=== PATIENT | female | born 1995 | race Caucasian/White ===

== ENCOUNTER 2016-07-23 10:37 | Outpatient (CLI) | payer MEDICAID ==
[~2016-07-23] VITALS: Ht 157.5 cm; Wt 81.8 kg
[~2016-07-23 10:37] MED LIST: PREN1TAB17 PO; PREN1TAB67 PO
[2016-07-23 11:01] VITALS: BP 110/53; PULSE 88
[2016-07-23 11:03] VITALS: Ht 157.5 cm; Wt 81.8 kg
[2016-07-23 11:51] LABS: ADD UMIC YES; URINE BILIRUBIN (Dip) NEGATIVE (NEGATIVE); URINE BLOOD (Dip) NEGATIVE (NEGATIVE); URINE COLOR LT. YELLOW (YELLOW); URINE GLUCOSE (Dip) NEGATIVE (NEGATIVE); URINE KETONES (Dip) NEGATIVE (NEGATIVE); URINE LEUKOCYTE ESTERASE (Dip) 3+ (NEGATIVE); URINE NITRITE (Dip) NEGATIVE (NEGATIVE); URINE TOTAL PROTEIN (Dip) NEGATIVE (NEGATIVE); URINE UROBILINOGEN (Dip) 0.2 E.U./dL (0.1-1.0)
[2016-07-23] MEDS ORDERED: LACTATED RINGER'S 1,000 ML IV ONE ×2 (12:00→14:00)
[2016-07-23] MEDS ORDERED: TERBUTALINE 1 MG/ML INJ SC ONE (12:00)
[2016-07-23] MEDS ORDERED: TERBUTALINE 1 ML ONE (12:02)
[2016-07-23 12:10] LABS: BACTERIA,URINE MODERATE; SQUAMOUS EPITHELIAL CELL,UR MODERATE; URINE RBCS 0-2 /HPF (0)
--- NOTE | 2016-07-23 14:43 | PN ---
Date/Time of Note Date/Time of Note DATE: 07/23/16 TIME: 14:39 OB Subjective Subjective Subjective Patient is a 2 para 1 at 36+5 weeks of gestation She presents with contractions OB Objective Objective Objective Cervical exam per nurse fingertip/50%/-1 [place] irregular heart rate category 1 HEENT: WNL Heart: Rhythm Normal Lungs: Clear Abdomen: WNL Extremities: Normal Cervical Dilatation: Fingertip Effacement: 50% Station: -1 Membranes: Intact Heart Rate: 140's Accelerations: Accelerations Present Decelerations: No Decelerations Varibility: Moderate Contractions on Admission: >10 Minutes Apart Intensity: Mild OB Assessment/Plan Reason for admission: labor Other Assessment: Rule out labor Other plan: IV fluid Terbutaline 1 dose UA positive for 3+ leukocyte esterase Prescription for Macrobid 100 mg p.o. twice daily for 7 days was given Patient to follow-up with Dr. Thakur in 2 days ROX BOURGEOIS MD Jul 23, 2016 14:43
--- NOTE | 2016-07-23 17:17 | TRIAGE ---
OB Triage Datetime Report Generated by CPN: 07/23/2016 17:17 Datetime: 07/23/2016 13:33 Stage of : OB Triage Maternal Assessment Level of Consciousness: Fully Conscious Headache: Denies Nausea/Vomiting: Denies RUQ Epigastric Pain: Denies Labor Evaluation Frequency: irrit Monitor Mode: External Duration (sec)2399: 5-30 Resting Tone [place]: Relaxed Heart Rate FHR Baseline Rate: 135 Monitor Mode: External US FHR Baseline Changes: No Baseline Change Variability: Moderate 6-25 bpm Accelerations: 15X15 Decelerations: None Category: Category I Pain Assessment Pain Scale: 4 Pain Presence: Constant Pain Type: Pressure Pain Location: Abdomen Pain Goal: 2 Datetime: 07/23/2016 12:47 Stage of : OB Triage Maternal Assessment Level of Consciousness: Fully Conscious Headache: Denies Nausea/Vomiting: Denies RUQ Epigastric Pain: Denies Labor Evaluation Frequency: irrit Monitor Mode: External Duration (sec)2399: 5 Resting Tone [place]: Relaxed Heart Rate FHR Baseline Rate: 140 Monitor Mode: External US FHR Baseline Changes: No Baseline Change Variability: Moderate 6-25 bpm Accelerations: 15X15 Decelerations: None Category: Category I Pain Assessment Pain Scale: 4 Pain Presence: Constant Pain Type: Pressure Pain Location: Abdomen Pain Goal: 2 Datetime: 07/23/2016 12:04 Stage of : OB Triage Maternal Assessment Level of Consciousness: Fully Conscious Headache: Denies Nausea/Vomiting: Denies RUQ Epigastric Pain: Denies Labor Evaluation Frequency: 0 Monitor Mode: External Heart Rate FHR Baseline Rate: 140 Monitor Mode: External US FHR Baseline Changes: No Baseline Change Variability: Moderate 6-25 bpm Accelerations: 15X15 Decelerations: None Category: Category I Pain Assessment Pain Scale: 8 Pain Presence: Constant Pain Type: Contraction; Pressure; Ache Pain Location: Abdomen Pain Goal: 4 Pain Relief Measures: TERB GIVEN Datetime: 07/23/2016 11:14 Vaginal Exam Dilatation (cms): 0.5 Effacement (%): 50 Station: -1 Exam By: LR RN Datetime: 07/23/2016 11:00 Stage of : OB Triage Assessment Type: Triage Maternal Assessment Level of Consciousness: Fully Conscious DTR's/Clonus: DTRs 2+; No Clonus Headache: Denies Blurred Vision: No Respiratory Effort: Unlabored; Regular Rhythm; Equal Expansion Breath Sounds, Left: Clear and Equal Breath Sounds, Right: Clear and Equal Nausea/Vomiting: Denies RUQ Epigastric Pain: Denies Lower Extremities Edema: None Upper Extremities Edema: None Facial Edema: None Fall Risk Assessment History of Falling: (0) No Secondary Diagnosis: (0) No Ambulatory Aid: (0) Bedrest/Nurse Assist IV Therapy: (0) No Gait: (0) Normal/Bedrest/Immobile Mental Status: (0) Oriented to Own Ability Fall Score: 0 Fall Risk Score Definition: No Risk: No action required Labor Evaluation Frequency: 0 Monitor Mode: External Heart Rate FHR Baseline Rate: 140 Monitor Mode: External US FHR Baseline Changes: No Baseline Change Variability: Moderate 6-25 bpm Accelerations: 15X15 Decelerations: None Category: Category I Datetime: 07/23/2016 10:43 EGA: 36.5 Datetime: 07/23/2016 10:38 Time of Arrival: 07/23/2016 10:37 Arrived By: Wheelchair Arrived From: Home Chief Complaint: UC'S SINCE MONDAY; SAW DR LOYD ON MONDAY Rupture of Membranes: Denies Vaginal Discharge: Denies Recent Sexual Intercouse: Denies Abdominal Trauma: Not Applicable Patient Complaints: Contractions Initial Plan: EFM/VE/NST/ R/O PTL/CALL DR LOYD FOR ORDERS UA SENT ([facility])
== END 2016-07-23 15:00 | disposition home or self-care (01) ==
LOC: OBT 10:37 → L-D 10:37 → OBT 15:00
PROVIDERS: ATTEND Obstetrics & Gynecology
DX: O62.8 Other abnormalities of forces of labor (principal)
CPT/HCPCS: 36415; 81001; 96360; 96361; 96372; J3105; J7120; Z7500; 81003; G0463

== ENCOUNTER 2016-08-10 21:10 | Outpatient (CLI) | payer MEDICAID ==
--- NOTE | 2016-08-10 22:16 | RADRPT ---
PROCEDURE: US OB biophysical profile. CLINICAL INDICATION: decreased movements, pelvic pain TECHNIQUE: Multiple sonographic images of the pelvis were obtained. The images were reviewed on a PACS workstation. COMPARISON: No prior studies are available for comparison. FINDINGS: There is a single viable intrauterine gestation. Cardiac activity is present with 134 beats per min [place]. There is a vertex presentation. The placenta is anterior. There is no evidence of placental abruption. There is a normal amount of amniotic fluid with an KIERSTEN = 11.7 cm. Biophysical profile: movement 2/2 tone 2/2. breathing 2/2 KIERSTEN 2/2 Total 11/08 RPTAT: AA . IMPRESSION: Normal biophysical profile. . .Merlin Cannon MD, Date Time Electronically viewed and signed by .Mrelin Cannon MD, MD on 08/10/2016 22:16 .S/
--- NOTE | 2016-08-10 22:41 | HP ---
Date/Time of Note Date/Time of Note DATE: 08/10/16 TIME: 22:36 OB - History Hx of Present Free Text/Dictation OB Triage- Laborist Pt is a 20yo at 39+2 presenting with c/o contractions since 1300, decreased FM x2 days and blood noted on toilet paper with wiping last night. Pt denies LOF. PROCEDURE: US OB biophysical profile. CLINICAL INDICATION: decreased movements, pelvic pain TECHNIQUE: Multiple sonographic images of the pelvis were obtained. The images were reviewed on a PACS workstation. COMPARISON: No prior studies are available for comparison. FINDINGS: There is a single viable intrauterine gestation. Cardiac activity is present with 134 beats per minute. There is a vertex presentation. The placenta is anterior. There is no evidence of placental abruption. There is a normal amount of amniotic fluid with an KIERSTEN = 11.7 cm. Biophysical profile: movement 2/2 tone 2/2. breathing 2/2 KIERSTEN 2/2 Total 11/08 RPTAT: AA . IMPRESSION: Normal biophysical profile. Estimated Due Date: August 15, 2016 : 2 Para: 1 Care: Good Care OB Admission Exam Vital Signs Vital Signs 98.3 105/55 83 Physical Exam Cervical Dilatation: 1cm Effacement: Other (40%) Station: -3 Membranes: Intact Heart Rate: 130's Accelerations: Accelerations Present Decelerations: No Decelerations Varibility: Moderate Contractions on Admission: < 5 Minutes Apart (q3-4 min) Intensity: Mild OB Assessment/Plan Other Assessment: Term contractions w/o evidence of labor Reassuring FWB Other plan: Reactive NST, 11/08 BPP. Pt appropriate for d/c home. FKC, Labor and ROM precautions reviewed Questions answered to patient's satisfaction Pt to f/up as scheduled with PATSY Leal MD August 10, 2016 22:41
--- NOTE | 2016-08-10 22:49 | TRIAGE ---
OB Triage Datetime Report Generated by CPN: 08/10/2016 22:48 Datetime: 08/10/2016 22:30 Stage of : OB Triage Datetime: 08/10/2016 21:30 Labor Evaluation Frequency: X2 Monitor Mode: External Duration (sec)2399: 70-80 Pattern: Normal: <= 5 Contractions in 10 Minutes Heart Rate FHR Baseline Rate: 140 Monitor Mode: External US FHR Baseline Changes: No Baseline Change Variability: Moderate 6-25 bpm Decelerations: Variable Category: Category II Comments: 15X15 X1 Datetime: 08/10/2016 21:26 Vaginal Exam Dilatation (cms): 1.0 Effacement (%): 40 Station: -3 Exam By: MICHAEL Vaginal Bleeding: None Cervix, Consistency: Moderate Cervix, Position: Posterior Presentation 'A': Cephalic Datetime: 08/10/2016 21:24 Pain Assessment Pain Scale: 7 Pain Presence: Intermittent Pain Type: Ache Pain Location: Right Hip Pain Goal: 3 Pain Assessment Comments: PT. APPEARS COMFORTABLE, NOT GRIMACING, MOANING OR CRYING. PT. ANSWERING QUESTIONS CALMLY AND IS STATIONARY IN BED Datetime: 08/10/2016 21:21 Assessment Type: Triage Maternal Assessment Level of Consciousness: Fully Conscious Headache: Denies Blurred Vision: No Respiratory Effort: Unlabored; Regular Rhythm; Equal Expansion Breath Sounds, Left: Clear and Equal Breath Sounds, Right: Clear and Equal Nausea/Vomiting: Denies RUQ Epigastric Pain: Denies Lower Extremities Edema: None Degree: None Upper Extremities Edema: None Facial Edema: None Fall Risk Assessment History of Falling: (0) No Secondary Diagnosis: (0) No Ambulatory Aid: (0) Bedrest/Nurse Assist Gait: (0) Normal/Bedrest/Immobile Mental Status: (0) Oriented to Own Ability Datetime: 08/10/2016 21:15 Time of Arrival: 08/10/2016 21:08 EGA: 39.2 Arrived By: Wheelchair Arrived From: Home Chief Complaint: UC'S, DFM, SPOTTING Movement: Decreased Contractions: Irregular Time Contractions Began: 08/10/2016 13:00 Contractions: Q20MIN Rupture of Membranes: Denies Vaginal Bleeding: Scant Vaginal Discharge: Present Recent Sexual Intercouse: Denies Abdominal Trauma: Not Applicable Patient Complaints: Contractions Time Provider Notified: 08/10/2016 21:49 Provider Notified: JAMIE Initial Plan: EFM, CALL OB Datetime: 07/23/2016 14:30 Stage of : OB Triage Maternal Assessment Level of Consciousness: Fully Conscious Headache: Denies Nausea/Vomiting: Denies RUQ Epigastric Pain: Denies Labor Evaluation Frequency: OCC Monitor Mode: External Duration (sec)2399: 5-30 Resting Tone [place]: Relaxed Heart Rate FHR Baseline Rate: 135 Monitor Mode: External US FHR Baseline Changes: No Baseline Change Variability: Moderate 6-25 bpm Accelerations: 15X15 Decelerations: None Category: Category I Pain Assessment Pain Scale: 2 Pain Presence: Constant Pain Type: Pressure Pain Location: Abdomen Pain Goal: 2 Datetime: 07/23/2016 11:00 Fall Score: 0 Fall Risk Score Definition: No Risk: No action required Datetime: 07/23/2016 10:43 EGA: 36.5
== END 2016-08-10 22:30 | disposition home or self-care (01) ==
LOC: OBT 21:10 → L-D 21:10 → OBT 22:30
PROVIDERS: ATTEND Obstetrics & Gynecology
DX: O62.9 Abnormality of forces of labor, unspecified (principal); O36.8130 Decreased fetal movements, third trimester, not applicable or unspecified; Z3A.39 39 weeks gestation of pregnancy
CPT/HCPCS: 76818

== ENCOUNTER 2016-08-14 11:52 | Inpatient (IN) | payer MEDICAID ==
[~2016-08-14] VITALS: Ht 157.5 cm; Wt 83.0 kg
[2016-08-14 12:07] VITALS: Ht 157.5 cm; Wt 83.0 kg
[2016-08-14 12:08] VITALS: BP 101/58; PULSE 85; RESP 20
--- NOTE | 2016-08-14 14:32 | HP ---
Date/Time of Note Date/Time of Note DATE: 08/14/16 TIME: 14:31 OB - History Hx of Present Free Text/Dictation 39+6 wks GA Suspected SROM : 1 Para: 0 Care: Good Care Ultrasounds: Normal mid trimester US Obstetrical Complications: None Medical Complications: None Past Family/Social History * Past Medical, Surgical, Family and Obstetric Histories reviewed from chart. OB Admission Exam Vital Signs Vital Signs Vital Signs Date Time Temp Pulse Resp B/P Pulse Ox O2 Delivery O2 Flow Rate FiO2 08/14/16 12:08 98.1 85 20 101/58 Room Air Physical Exam Abdomen: WNL Extremities: Normal Cervical Dilatation: 3cm Effacement: 75% Station: -1 Membranes: Ruptured Heart Rate: 140's Accelerations: Accelerations Present Decelerations: No Decelerations Varibility: Moderate Contractions on Admission: 6-10 Minutes Apart OB Assessment/Plan Reason for admission: observation Induction Method: per Pitocin Protocol SEN CUELLAR M.D. August 14, 2016 14:32
[2016-08-14] MEDS ORDERED: LACTATED RINGER'S 1,000 ML IV PRN (14:35)
[2016-08-14] MEDS ORDERED: CARBOPROST 250 MCG INJ IM PRN (15:00)
[2016-08-14] MEDS ORDERED: MISOPROSTOL 200 MCG TAB PR PRN (15:00)
[2016-08-14] MEDS ORDERED: OXYTOCIN 30 UNITS/LR 500 ML IV SCH ×3 (15:00→15:30)
[2016-08-14] MEDS ORDERED: LIDOCAINE 1% (MPF) 30 ML INJ INJ PRN (15:00)
[2016-08-14] MEDS ORDERED: BUTORPHANOL 2 MG INJ IV PRN (15:00)
[2016-08-14] MEDS ORDERED: OXYTOCIN 30 UNITS/LR 500 ML IV PRN (15:00)
[2016-08-14] MEDS ORDERED: METHYLERGONOVINE 0.2 MG INJ IM PRN (15:00)
[2016-08-14] MEDS ORDERED: AMPICILLIN 2 GM/NS (PMX) 100 ML IV ONE (15:00)
[2016-08-14] MEDS ORDERED: CEFAZOLIN 2 GM/50 ML (PMX) 50 ML IV ONE (15:00)
[2016-08-14] MEDS ORDERED: IBUPROFEN 600 MG TAB PO PRN (15:00)
[2016-08-14 15:08] LABS: ADD SCAN DIFF NO
[2016-08-14] MEDS: LACTATED RINGER'S 1,000 ML IV SCH ×2 (15:09→21:58)
[2016-08-14 15:10] LABS: BASOPHILS % 0.3 % (0.0-2.0); EOSINOPHILS % 0.3 % (0.0-7.0); HEMATOCRIT 33.7 % (37.0-47.0); HEMOGLOBIN 11.3 g/dl (12.0-16.0); LYMPHOCYTES # 1.5 10^3/ul (0.8-2.9); LYMPHOCYTES % 19.7 % (15.0-51.0); MEAN CORPUSCULAR HEMOGLOBIN 30.6 pg (29.0-33.0); MEAN CORPUSCULAR HGB CONC 33.5 g/dl (32.0-37.0); MEAN CORPUSCULAR VOLUME 91.3 fl (82.0-101.0); MEAN PLATELET VOLUME 11.8 fl (7.4-10.4); MONOCYTE # 0.4 10^3/ul (0.3-0.9); MONOCYTES % 5.6 % (0.0-11.0); NEUTROPHIL # 5.8 10^3/ul (1.6-7.5); NEUTROPHILS % 73.6 % (39.0-77.0); PLATELET COUNT 197 10^3/UL (140-415); RED BLOOD COUNT 3.69 10^6/ul (4.20-5.40); RED CELL DISTRIBUTION WIDTH 13.1 % (11.5-14.5); WHITE BLOOD COUNT 7.8 10^3/ul (4.8-10.8)
[2016-08-14 15:26] LABS: INR 0.91; PROTIME 12.3 Sec (12.2-14.2)
--- NOTE | 2016-08-14 16:01 | RADRPT ---
PROCEDURE: US OB. CLINICAL INDICATION: Size and dates , labor pain TECHNIQUE: Multiple sonographic images of the pelvis and gravid uterus were obtained. The images were reviewed on a PACS workstation. COMPARISON: 08/10/2016 FINDINGS: There is a single viable intrauterine gestation. Cardiac activity is present with 135 beats per min [place]. There is a vertex presentation. The placenta is anterior. There is no evidence for an abruption or placenta previa. There is a decreased amount of amniotic fluid with an KIERSTEN = 3.1 cm. Measurements were made in order to determine age. The results are as follows: BPD =9.3 cm HC =33.3 cm AC =37.2 cm FL =7.8 cm Estimated gestational age of approximately 39 weeks and 1 day based on ultrasound measurements. Clinical age: 39 weeks and 6 days. The estimated date of delivery is 08/20/2016, based on ultrasound measurements. The EFW = 3952 g, 78%, based on LMP age. RPTAT: AA IMPRESSION: Single viable intrauterine gestation of approximately 39 weeks and 1 day based on ultrasound measur ements. Oligohydramnios. .Merlin Cannon MD, Date Time Electronically viewed and signed by .Merlin Cannon MD, on 08/14/2016 16:01 .S/
--- NOTE | 2016-08-14 16:02 | RADRPT ---
PROCEDURE: US OB biophysical profile. CLINICAL INDICATION: decreased movements TECHNIQUE: Multiple sonographic images of the pelvis were obtained. The images were reviewed on a PACS workstation. COMPARISON: 08/10/2016 FINDINGS: There is a single viable intrauterine gestation. Cardiac activity is present with 126 beats per min [place]. There is a vertex presentation. The placenta is anterior. There is no evidence for an abruption or placenta previa. There is a decreased amount of amniotic fluid with an KIERSTEN = 3.1 cm. Biophysical profile: movement 2/2 tone 2/2. breathing 2/2 KIERSTEN 0/2 Total 09/08 RPTAT: AA . IMPRESSION: Decreased biophysical profile. Oligohydramnios. . .Merlin Cannon MD, Date Time Electronically viewed and signed by .Merlin Cannon MD, MD on 08/14/2016 16:01 .S/
[2016-08-14] MEDS: AMPICILLIN 1 GM/NS (PMX) 50 ML IV SCH (21:53)
[2016-08-15] MEDS: AMPICILLIN 1 GM/NS (PMX) 50 ML IV SCH ×3 (00:42→09:31)
[2016-08-15] MEDS: LACTATED RINGER'S 1,000 ML IV SCH (05:39)
[2016-08-15] MEDS ORDERED: ONDANSETRON 4 MG INJ IV PRN (08:00)
[2016-08-15] MEDS ORDERED: NALOXONE (0.4 MG/ML) INJ IV PRN (14:00)
[2016-08-15] MEDS ORDERED: FENTAnyl 2MCG/ML-ROPIV 0.2% 100 ML BAG EPI SCH (14:00)
--- NOTE | 2016-08-15 16:15 | LDN ---
Date/Time of Note Date/Time of Note DATE: 08/15/16 TIME: 16:13 Delivery Summary of a viable over intact perineum Weeks of Gestation 40 Placenta Delivered: Spontaneously, Intact & Complete Meconium: none Episiotomy: No Anesthesia type: Epidural Estimated blood loss: 300 Sponge & Needle done & correct: Yes All needle counts correct: Yes Any foreign bodies felt in the: No Problems: Delivery Information Sex Infant Sex: male Apgars 1 Minute: 9 5 Minute: 9 Suctioning Nose & mouth suctioned at kamini: Yes Delee suction performed: No Umbilical Cord Umbilical cord with: 3 Vessels Cord presentations: nuchal cord Nuchal cord present X: 1 Cord Blood was obtained: Yes Mother & Baby Disposition Disposition Mom & Baby to Maternity; Good: Yes (mother and baby were recovered in good condition ) Mom transferred to: Other (maternity) Baby to NICU: No LINDA RAI MD August 15, 2016 16:15
[2016-08-15] MEDS ORDERED: MINERAL OIL LIGHT 10 ML VIAL TOP ONE (16:30)
[2016-08-15 19:00] VITALS: BP 111/65; PULSE 64; RESP 16
[2016-08-15] MEDS ORDERED: METHYLERGONOVINE 0.2 MG INJ IM PRN (19:00)
[2016-08-15] MEDS ORDERED: CARBOPROST 250 MCG INJ IM PRN (19:00)
[2016-08-15] MEDS: CEPHALEXIN 500 MG CAP PO SCH ×2 (19:00→23:37)
[2016-08-15] MEDS ORDERED: MISOPROSTOL 200 MCG TAB PR PRN (19:00)
[2016-08-15] MEDS ORDERED: WITCH HAZEL/GLYCERIN PAD PR PRN (19:00)
[2016-08-15] MEDS ORDERED: ZOLPIDEM 5 MG TAB PO PRN (19:00)
[2016-08-15] MEDS ORDERED: LANOLIN 7 GM TUBE TOP PRN (19:00)
[2016-08-15] MEDS ORDERED: ACETAMINOPHEN/CODEINE #3 TAB PO PRN ×2 (19:00)
[2016-08-15] MEDS ORDERED: DIBUCAINE 1% 30 GM OINT PR PRN (19:00)
[2016-08-15] MEDS ORDERED: OXYTOCIN 30 UNITS/LR 500 ML IV PRN (19:00)
[2016-08-15] MEDS: IBUPROFEN 600 MG TAB PO SCH ×2 (19:00→23:37)
[2016-08-15] MEDS ORDERED: BENZOCAINE 20% 56 ML SPRAY TOP PRN (19:00)
[2016-08-15 20:20] VITALS: BP 109/68; RESP 18
[2016-08-15] MEDS: LACTATED RINGER'S 1,000 ML IV* SCH (20:44)
[2016-08-15] MEDS: SENNA/DOCUSATE NA (8.6MG/50MG) TAB PO SCH (21:08)
[2016-08-15] MEDS: MAGNESIUM HYDROXIDE 30ML CUP PO SCH (21:09)
[2016-08-15 23:40] VITALS: BP 99/59; PULSE 78; RESP 18
[2016-08-16 04:00] VITALS: BP 99/62; PULSE 62; RESP 18
[2016-08-16] MEDS: CEPHALEXIN 500 MG CAP PO SCH ×3 (06:24→18:12)
[2016-08-16] MEDS: IBUPROFEN 600 MG TAB PO SCH ×3 (06:24→18:13)
[2016-08-16] MEDS: LACTATED RINGER'S 1,000 ML IV* SCH (06:42)
[2016-08-16 08:10] VITALS: BP 94/54; PULSE 67; RESP 16
[2016-08-16 08:18] LABS: ADD SCAN DIFF NO
[2016-08-16 08:49] LABS: BASOPHILS % 0.1 % (0.0-2.0); EOSINOPHILS % 0.5 % (0.0-7.0); HEMOGLOBIN 9.1 g/dl (12.0-16.0); LYMPHOCYTES # 1.4 10^3/ul (0.8-2.9); LYMPHOCYTES % 16.3 % (15.0-51.0); MEAN CORPUSCULAR HEMOGLOBIN 30.7 pg (29.0-33.0); MEAN CORPUSCULAR HGB CONC 33.7 g/dl (32.0-37.0); MEAN CORPUSCULAR VOLUME 91.2 fl (82.0-101.0); MEAN PLATELET VOLUME 11.6 fl (7.4-10.4); MONOCYTE # 0.6 10^3/ul (0.3-0.9); MONOCYTES % 6.4 % (0.0-11.0); NEUTROPHIL # 6.6 10^3/ul (1.6-7.5); NEUTROPHILS % 76.2 % (39.0-77.0); PLATELET COUNT 157 10^3/UL (140-415); RED BLOOD COUNT 2.96 10^6/ul (4.20-5.40); RED CELL DISTRIBUTION WIDTH 13.3 % (11.5-14.5); WHITE BLOOD COUNT 8.6 10^3/ul (4.8-10.8)
[2016-08-16] MEDS: MAGNESIUM HYDROXIDE 30ML CUP PO SCH ×2 (09:00→21:00)
[2016-08-16] MEDS: SENNA/DOCUSATE NA (8.6MG/50MG) TAB PO SCH ×2 (09:46→21:00)
[2016-08-16 12:50] VITALS: BP 92/49; PULSE 55; RESP 16
[2016-08-16 16:10] VITALS: BP 94/48; PULSE 57; RESP 16
--- NOTE | 2016-08-16 18:02 | DS ---
Date/Time of Note Date/Time of Note home next day DATE: 08/16/16 TIME: 18:01 Obstetrical Discharge Record Final Diagnosis Final Diagnosis: Term delivered Other Final Diagnosis S/P vaginal delivery Vaginal Delivery Obstetrical Delivery: Spontaneous Complications Augmentation: Yes Induction: Yes Condition on Discharge Physical Assessment Last Vitals: see nurses notes Voiding: Yes Bowel Movement: Yes Breast: Soft, non-tender, Filling Fundus: Firm Abdomen and Incision: soft BS + Episiotomy: NA Calf Tenderness: No Patient Condition: Good LINDA RAI MD August 16, 2016 18:02
--- NOTE | 2016-08-16 18:04 | PD.PPDC ---
COMPUTER AIDED DESIGN DRAFTER Discharge Instruction Provider Information Physician Information 20 y/o female had vaginal delivery Diagnosis Final Diagnosis: S/P vaginal delivery Condition Patient Condition: Good Diet Diet: Resume Regular Diet Activity/Restrictions Activity: Normal Activity May Shower Restrictions: Nothing in the Vagina Return to Work or School: Oct 31, 2016 Follow-up Follow-up with Physician: 4, Week/Weeks (in clinic ) Return to clinic for OB Instructions: Breast Tenderness Depression LINDA RAI MD August 16, 2016 18:04
[2016-08-16] MEDS ORDERED: IBUP-1542 PO (18:05)
[2016-08-16 20:00] VITALS: BP 111/51; PULSE 60; RESP 20
[2016-08-17] MEDS: CEPHALEXIN 500 MG CAP PO SCH ×3 (00:05→11:50)
[2016-08-17] MEDS: IBUPROFEN 600 MG TAB PO SCH ×3 (00:05→11:50)
[2016-08-17 04:00] VITALS: BP 101/52; PULSE 50; RESP 18; RESP 20
[2016-08-17 08:00] VITALS: BP 94/51; PULSE 58; RESP 18
[2016-08-17] MEDS: SENNA/DOCUSATE NA (8.6MG/50MG) TAB PO SCH (09:00)
[2016-08-17] MEDS ORDERED: MEASLES,MUMPS,RUBELLA VACCINE INJ SC* ONE (09:00)
[2016-08-17] MEDS: MAGNESIUM HYDROXIDE 30ML CUP PO SCH (09:00)
[2016-08-17] MEDS ORDERED: DIPHTH/TET/ACEL PERTUSS (ADULT) 0.5 ML VIAL IM* ONE (09:00)
[2016-08-17] MEDS ORDERED: VARICELLA VACCINE LIVE/PF 1,350 UNIT/0.5 ML ML SC* ONE (09:00)
== END 2016-08-17 17:41 | disposition home or self-care (01) | DRG 775 ==
LOC: OBT 11:52 → L-D 11:53 → OBT 14:35 → L-D 14:43 → PP1 08-15 18:25
PROVIDERS: ADMIT Obstetrics & Gynecology; ATTEND Obstetrics & Gynecology
PROC: 10E0XZZ Delivery of Products of Conception, External Approach (ICD-10-PCS; principal; 2016-08-15)
DX: O69.1XX0 Labor and delivery complicated by cord around neck, with compression, not applicable or unspecified (principal); Z37.0 Single live birth; Z3A.40 40 weeks gestation of pregnancy
CPT/HCPCS: 62319; 76815; 76818; 84112; 85025; 85610; 85730; 86592; 86703; 86900; 86901; 87340; 90715; 90716; G0463; J0290; J2405; J2590; J3010; J7120